=== PATIENT | female | born 1985 | race Caucasian/White ===

== ENCOUNTER 2018-09-26 01:50 | Emergency (ER) | payer MEDICAID ==
[~2018-09-26] VITALS: Ht 162.6 cm; Wt 54.4 kg
[2018-09-26 01:58] VITALS: BP 126/78
[2018-09-26] MEDS ORDERED: IBUPROFEN 800 MG TAB PO ONE (02:20)
[2018-09-26 02:31] LABS: BASOPHILS % (AUTO) 0.6 % (0.0-2.0); EOSINOPHILS # (AUTO) 0.1 K/uL (0-0.4); EOSINOPHILS % (AUTO) 1.6 % (0.0-4.0); HEMATOCRIT 35.7 % (36-48); HEMOGLOBIN 11.6 g/dL (12.0-16.0); LYMPHOCYTES # (AUTO) 2.5 K/uL (2.5-16.5); LYMPHOCYTES % (AUTO) 31.8 % (20.5-51.1); MEAN CORPUSCULAR HEMOGLOBIN 30 pg (27-31); MEAN CORPUSCULAR HGB CONC 32 g/dL (33-37); MEAN CORPUSCULAR VOLUME 92.4 fL (80-94); MONOCYTES # (AUTO) 0.8 K/uL (0.8-1.0); MONOCYTES % (AUTO) 10.2 % (1.7-9.3); NEUTROPHILS # (AUTO) 4.4 K/uL (1.8-7.7); NEUTROPHILS % (AUTO) 55.8 % (42.2-75.2); PLATELET COUNT (AUTO) 242 K/uL (140-450); RED BLOOD CELL COUNT(AUTO) 3.86 MIL/uL (4.20-5.40); RED CELL DISTRIBUTION WIDTH 12.5 % (11.6-13.7); WHITE BLOOD COUNT (AUTO) 7.9 K/uL (4.8-10.8)
[2018-09-26 02:36] LABS: APPEARANCE,URINE CLEAR (CLEAR); BILIRUBIN,URINE NEGATIVE (NEGATIVE); BLOOD, URINE NEGATIVE (NEGATIVE); COLOR,URINE YELLOW (YELLOW); LEUKOCYTE ESTERASE ,URINE NEGATIVE (NEGATIVE); NITRITE, URINE NEGATIVE (NEGATIVE); PH,URINE 8.5 (5.0-9.0); UGLUCOSE NEGATIVE (NEGATIVE)
[2018-09-26 02:47] LABS: ALBUMIN 3.6 g/dL (3.4-5.0); ANION GAP 7.3 (8-16); CARBON DIOXIDE 32.3 mmol/L (21-32); CREATININE 1.1 mg/dL (0.6-1.3); POTASSIUM 3.6 mmol/L (3.5-5.1); TOTAL BILIRUBIN 0.3 mg/dL (0.0-1.0)
[2018-09-26 03:50] VITALS: BP 122/74
== END 2018-09-26 03:50 | disposition home or self-care (01) ==
LOC: MED 01:50
DX: K59.00 Constipation, unspecified (principal); D64.9 Anemia, unspecified; Q89.3 Situs inversus
CPT/HCPCS: 36415; 80053; 81003; 81025; 83690; 85025; 99284

== ENCOUNTER 2019-03-27 12:50 | Emergency (ER) | payer SELFPAY ==
--- NOTE | 2019-03-27 13:05 | NUR ---
PATIENT LEFT WITHOUT BEING SEEN BY DR. PLUMMER. NO FURTHER CARE PROVIDED FOR PATIENT.
--- NOTE | 2019-03-27 13:05 | NUR ---
NO ANSWER IN ER LOBBY
--- NOTE | 2019-03-27 13:17 | NUR ---
no answer in er lobby
--- NOTE | 2019-03-27 13:34 | NUR ---
no answer in er lobby
== END 2019-03-27 13:05 | disposition left against medical advice (07) ==
LOC: MED 12:50
DX: R51 Headache (principal); Z53.21 Procedure and treatment not carried out due to patient leaving prior to being seen by health care provider